=== PATIENT | male | born 1945 | race Caucasian/White ===

== ENCOUNTER → 2018-11-02 | Day surgery (SDC) | payer MEDICARE, OTHER ==
[2018-10-27 14:15] LABS: BASOPHILS % 0.3 % (0.0-1.0); EOSINOPHILS # (AUTO) 0.1 (0.0-0.4); EOSINOPHILS % 2.1 % (0.0-6.0); HEMATOCRIT 36.8 % (38.2-49.6); HEMOGLOBIN 11.8 g/dL (14.0-18.0); LYMPHOCYTES # (AUTO) 0.8 (1.0-3.2); LYMPHOCYTES % 24.2 % (18.0-39.1); MEAN CORPUSCULAR HEMOGLOBIN 27.8 pg (28-32); MEAN CORPUSCULAR HGB CONC 32.1 g/dL (31-35); MEAN CORPUSCULAR VOLUME 86.6 fL (81-99); MONOCYTES # (AUTO) 0.5 (0.2-0.8); MONOCYTES % 13.8 % (4.4-11.3); NEUTROPHILS # (AUTO) 1.9 (2.1-6.9); NEUTROPHILS % 59.3 % (38.7-80.0); PLATELET COUNT 190 x10e3/uL (140-360); RED BLOOD COUNT 4.25 x10e6/uL (4.3-5.7); RED CELL DISTRIBUTION WIDTH 14.4 % (11.7-14.4)
[~2018-11-02] MED LIST: ASPIR 8181 MG PO; ATORVASTATIN CA10 MG PO; CLONIDINE HCL0.2 MG PO; EPHEDRINE SULFATE INJ 50 MG/10 ML SYR ONE; FENTANYL CITRATE/PF 100MCG/2 ML INJ ONE; FUROSEMIDE40 MG PO; HEMATINIC-FOLI1 EACH PO; HYDRALAZINE HCL25 MG PO; KLOR-CON M2020 MEQ PO; LEVETIRACETAM500 MG PO; LEVOTHYROXINE25 MCG PO; MIDAZOLAM HCL 2 MG/2 ML VIAL ONE; NADOLOL40 MG PO; PANTOPRAZOLE SO40 MG PO; PROPOFOL IV EMULSION 10 MG/ML 50 ML VIAL ONE; VITAMIN D3 PO
--- OUTSIDE RECORDS SUMMARY | 2018-11-02 07:41 | XMS REPORT ---
Author Author [facility] Address Unknown Phone Unavailable Care Team Providers Care Seasonal Sales Associate Name Role Phone Unavailable Unavailable Payers Payer Name Policy Type Policy Number Effective Date Expiration Date Problems This patient has no known problems. Allergies, Adverse Reactions, Alerts Allergy Name Allergy Type Status Severity Reaction(s) Onset Date Inactive Date Treating Clinician Comments hydrocodone DA Active U 2018-08-19 00:00:00 hydrocodone DA Active U 2018-08-17 00:00:00 No Known Allergies DA Active U 2016-08-26 00:00:00 Medications This patient has no known medications. Results Test Description Test Time Test Comments Text Results Atomic Results Result Comments GLUBED 2018-08-20 06:22:00 GLUBED (test code=GLUBED) 85 MG/DL 74-106 [id number] 20:33:00* Test Item Value Reference Range Comments GLUBED (test code=GLUBED) 105 MG/DL 74-106 [id number] 16:13:00* Test Item Value Reference Range Comments ACT-ISTAT (test code=ACTI) 147 SEC 74-125 [id number] 16:13:00* Test Item Value Reference Range Comments ACT-ISTAT (test code=ACTI) 263 SEC 74-125 [id number] 15:27:00* Test Item Value Reference Range Comments ACT-ISTAT (test code=ACTI) 246 SEC 74-125 [id number] 15:27:00* Test Item Value Reference Range Comments ACT-ISTAT (test code=ACTI) 147 SEC 74-125 [id number] 13:28:00* Test Item Value Reference Range Comments GLUBED (test code=GLUBED) 79 MG/DL 74-106 - XR CHEST 1 [id number] 13:17:00 FAX: Ayo Dennis [phone] [place]: [facility]: PRE FAX: Salo Sheldon [phone] Name: YINKA FRANZ [facility] : 1945 Age/S: 72/M [address] Unit #: [id number] Loc: [place] [address] Phys: Salo Abarca MD Acct: [id number] Dis Date: Status: PRE IN PHONE #: [phone] Exam Date: 08/17/2018 1307 FAX #: [phone] Reason: PRE OP EXAMS: CPT CODE: [id number] XR CHEST 1 V 22825 EXAM: - XR CHEST 1 V HISTORY: Preoperative exam Location code:C3 COMPARISON: 08/26/2016 FINDINGS: Single AP view of the chest is provided. Heart size and vascularity are within normal limits. Linear areas of scarring at the right lung apex and right and left midlung zones are unchanged. The lungs are clear of focal consolidation. No effusion, pneumothorax, or acute osseous abnormality. IMPRESSION: 1. No radiographic evidence of acute cardiopulmonary process. at 1317 Reported and signed by: Duarte Valles MD CC: Ayo Teixeira MD; Salo benton MD Technologist: Vicente Lopez Trnscrd Date/Time/By: 08/17/2018 (6861) : By: [email or web address] PAGE 1 Signed Report FAX: Ayo Dennis [phone] [place]: St: PRE FAX: Salo Denny [phone] Name: YINKA FRANZ [facility] andrew od : 1945 Age/S: 72/M [address] Unit #: [id number] Loc: [place] [address] Phys: Salo Abarca MD Acct: [id number] Dis Date: Status: PRE IN PHONE #: [phone] Exam Date: 08/17/2018 1307 FAX #: [phone] Reason: PRE OP EXAMS: CPT CODE: [id number] XR CHEST 1 V 76023 < Continued> Orig Print D/T: S: 08/17/2018 (1290) PAGE 2 Signed Report BASIC METABOLIC [id number] 13:12:00* Test Item Value Reference Range Comments SODIUM (test code=NA) 142 mmol/L 137-145 POTASSIUM (test code=K) 4.8 mmol/L 3.4-5.0 CHLORIDE (test code=CL) 105 mmol/L 98-107 CARBON DIOXIDE (test code=CO2) 28 mmol/L 22-30 GLUCOSE (test code=GLU) 91 mg/dL 74-106 BLOOD UREA NITROGEN (test code=BUN) 12 mg/dL 9-20 GLOMERULAR FILTRATION RATE (test code=GFR) >=60 max estimate >60 The estimated glomerular filtration rate is computed usingpatient race, age (>18), sex, and serum creatinine. If anyof the needed data elements are missing the Laboratory cannot compute an estimation of the glomerular filtration rate. CREATININE (test code=CREAT) 0.8 mg/dL 0.7-1.3 CALCIUM (test code=CA) 8.8 mg/dL 8.4-10.2 [id number] 13:12:00* Test Item Value Reference Range Comments MAGNESIUM (test code=MAG) 1.6 mg/dL 1.6-2.3 PROTHROMBIN [id number] 12:55:00* Test Item Value Reference Range Comments PROTHROMBIN TIME PATIENT (test code=PTP) 14.0 SECONDS 9.2-12.1 INTERNATIONAL NORMAL RATIO (test code=INR) 1.3 The INR is to be used only for monitoring ORAL ANTICOAGULANTTHERAPY. Indication INR Value1. Prophylaxis/treatment of: Venous Thrombosis, Pulmonary Embolism 2.0 - 3.02. Prevention of systemic embolism from: Tissue heart valves 2.0 - 3.0 Acute myocardial infarction (to present systemic embolism)* 2.0 - 3.0 Valvular heart disease 2.0 - 3.0 Atrial fibrillation 2.0 - 3.03. Mechanical prosthetic valves (high risk) 2.5 - 3.5 * If oral anticoagulant therapy is elected to preventrecurrent myocardial infarction, an INR of 2.5-3.5 isrecommended, consistent with Food and Drug Administrationrecommendations. IS PATIENT ON ANTICOAGULANTS ? YESLIST ANTICOAGULANT/ANTI PLT MEDICATION: Ot herTHROMBOPLASTIN TIME [id number] 12:55:00* Test Item Value Reference Range Comments THROMBOPLASTIN TIME PARTIAL (test code=PTT) 30.9 SECONDS 23.4-37.0 Therapeutic Range for Heparin EFFECTIVE 12/29/12 Heparin IU/mL aPTT Seconds0.3 64.30.7 88.8 IS PATIENT ON ANTICOAGULANTS ? YESLIST ANTICOAGULANT/ANTI PLT MEDICATION: Ot herCBC W/AUTO [id number] 12:48:00* Test Item Value Reference Range Comments WHITE BLOOD CELL (test code=WBC) 2.5 x10 3/uL 5.0-12.0 RED BLOOD CELL (test code=RBC) 4.28 x10 6/uL 4.70-6.10 HEMOGLOBIN (test code=HGB) 12.2 g/dL 14.0-18.0 HEMATOCRIT (test code=HCT) 37.9 % 37.0-49.0 MEAN CELL VOLUME (test code=MCV) 89 fL 80-94 MEAN CELL HGB (test code=MCH) 28.5 pg 27-31 MEAN CELL HGB CONCENTRATION (test code=MCHC) 32.2 g/dL 33-37 RED CELL DISTRIBUTION WIDTH (test code=RDW) 13.9 % 11.5-15.5 PLATELET COUNT (test code=PLT) 172 x10 3/uL 130-400 MEAN PLATELET VOLUME (test code=MPV) 9.7 fL 9.4-16.4 NEUTROPHIL % (test code=NT%) 59.1 % 43-65 IMMATURE GRANULOCYTE % (test code=IG%) 0.4 % 0.0-2.0 LYMPHOCYTE % (test code=LY%) 17.5 % 20.5-45.5 MONOCYTE % (test code=MO%) 19.0 % 5.5-11.7 EOSINOPHIL % (test code=EO%) 3.6 % 0.9-2.9 BASOPHIL % (test code=BA%) 0.4 % 0.2-1.0 NEUTROPHIL # (test code=NT#) 1.49 x10 3/uL 2.2-4.8 IMMATURE GRANULOCYTE # (test code=IG#) 0.01 x10 3/uL 0-0.03 LYMPHOCYTE # (test code=LY#) 0.44 x10 3/uL 1.3-2.9 MONOCYTE # (test code=MO#) 0.48 x10 3/uL 0.3-0.8 EOSINOPHIL # (test code=EO#) 0.09 x10 3/uL 0.0-0.2 BASOPHIL # (test code=BA#) 0.01 x10 3/uL 0.0-0.1
--- OUTSIDE RECORDS SUMMARY | 2018-11-02 07:41 | XMS REPORT | Clinical Summary ---
Author Author [facility] Address Unknown Phone Unavailable Care Team Providers Care Last Greaser Name Role Phone Daniel Gregorio MD PCP Allergies No Known Allergies Medications End Date Status Medication Sig Dispensed Refills Start Date Active atorvastatin (LIPITOR) 10 Take 10 mg by 0 MG tablet mouth daily. Active nadolol (CORGARD) 40 MG Take 80 mg by 0 tablet mouth 2 (two) times a day. Active ferrous fumarate/folic Take 1 tablet 0 acid (HEMATINIC/FOLIC by mouth ACID ORAL) daily. Active pantoprazole (PROTONIX) Take 40 mg by 0 40 MG EC tablet mouth 2 (two) times a day. Active clonIDINE (CATAPRES) 0.1 Take 0.1 mg 0 MG tablet by mouth 3 (three) times a day. Active potassium chloride Take 20 mEq 0 (K-DUR,KLOR-CON) 10 MEQ by mouth CR tablet daily. Active levETIRAcetam (KEPPRA) Take 500 mg 0 500 MG tablet by mouth 2 (two) times a day. Active levothyroxine (SYNTHROID, Take 25 mcg 0 LEVOXYL) 25 mcg tablet by mouth every morning. Active furosemide (LASIX) 40 mg Take 40 mg by 0 tablet mouth daily. Active hydrALAZINE (APRESOLINE) Take 50 mg by 0 50 MG tablet mouth 2 (two) times a day. Active apixaban (ELIQUIS) 5 mg Take 5 mg by 0 tablet mouth 2 (two) times a day. 10/13/2018 Discontinued warfarin (COUMADIN) 4 MG Take 4 mg by 0 tablet mouth daily. 10/13/2018 Discontinued cephalexin (KEFLEX) 500 Take 500 mg 0 MG capsule by mouth 3 (three) times a day. Active Problems No known active problems Encounters Care Team Description Date Type Specialty Salo Abarca MD Siddiqi, Rashid Muhammad, MD AF (paroxysmal atrial fibrillation) (HCC) 10/13/2018 Hospital Procedural Cardiology Encounter Salo Abarca MD AF (paroxysmal atrial fibrillation) (HCC) (Primary Dx) 10/06/2018 Transcribe Access Orders Ayo Evans MD 05/31/2018 Anesthesia General Surgery Event Estrada Peres MD CYSTO RETROGRADE 05/31/2018 Surgery General Surgery Estrada Peres MD Elevated PSA 05/31/2018 Hospital Radiology Encounter Estrada Peres MD Elevated PSA 05/31/2018 Hospital General Surgery Encounter Estrada Peres MD Elevated PSA (Primary Dx) 05/26/2018 Transcribe Access Orders after 11/01/2017 Family History Medical History Relation Name Comments Diabetes Brother Heart disease Brother Heart disease Brother Heart disease Brother Heart disease Father Cancer Maternal Grandfather Heart failure Mother Cancer Sister Relation Name Status Comments Brother Brother Brother Father Maternal Grandfather Mother Sister Social History Date Tobacco Use Types Packs/Day Years Used Quit: 1994 Former Smoker Cigarettes 1 42 Smokeless Tobacco: Former Chew Quit: 1994 User Alcohol Use Drinks/Week oz/Week Comments Yes 2 Cans of 1.2 beer Sex Assigned at Date Recorded Not on file Industry Job Start Date Occupation Not on file Not on file Not on file Travel End Travel History Travel Start No recent travel history available. Last Filed Vital Signs Time Taken Vital Sign Reading 10/13/2018 1:34 PM CDT Blood Pressure 161/92 10/13/2018 1:34 PM CDT Pulse 69 05/31/2018 8:36 AM COOLING TOWER OPERATOR Temperature 36.4 C (97.5 F) 10/13/2018 1:34 PM CDT Respiratory Rate 18 10/13/2018 1:34 PM CDT Oxygen Saturation 94% - Inhaled Oxygen - Concentration 10/13/2018 10:27 AM CDT Weight 74.4 kg (164 lb) 10/13/2018 10:27 AM CDT Height 175.3 cm (5' 9") 10/13/2018 10:27 AM CDT Body Mass Index 24.22 Plan of Treatment Health Maintenance Due Date Last Done Comments COLON CANCER SCREENING 1996 SHINGLES VACCINES (#1) 1996 65+ PNEUMOCOCCAL VACCINE 11/16/2011 (1 of 2 - PCV13) PNEUMOCOCCAL 11/16/2011 POLYSACCHARIDE VACCINE AGE 65 AND OVER INFLUENZA VACCINE 01/20/2019 Procedures Comments Procedure Name Priority Date/Time Associated Diagnosis ECHOCARDIOGRAM Routine 10/13/2018 AF (paroxysmal atrial TRANSESOPHAGEAL W DOPPLER 12:37 PM CDT fibrillation) (HCC) [facility] SURGICAL PATHOLOGY Routine 05/31/2018 REQUEST 10:37 AM COOLING TOWER OPERATOR US PROSTATE BIOPSY Routine 05/31/2018 Elevated PSA 8:39 AM COOLING TOWER OPERATOR FL PYELOGRAM RETROGRADE Routine 05/31/2018 8:04 AM COOLING TOWER OPERATOR GA AN ELECTIVE Routine 05/31/2018 SUPRAGLOTTIC AIRWAY 7:30 AM COOLING TOWER OPERATOR Procedure Note - Ayo Evans - 05/31/2018 7:30 AM COOLING TOWER OPERATOR ANESTHESIA INTUBATION Date/Time: 05/31/2018 7:30 AM Performed by: Ayo Evans MD Authorized by: Ayo Evans MD Location: OR Urgency: Elective Difficult Airway: No Anesthesio logist: Ayo Evans MD Preoxygena holly with 100% O2: Yes C-spine Precaution s Maintained Throughout : Yes Mask Ventilatio n: Not attempted Final Airway Type: Supraglott ic airway Final LMA: Classic LMA Size: 4 Number of Attempts at Approach: 1 POC GLUCOSE Routine 05/31/2018 6:13 AM COOLING TOWER OPERATOR ESTIMATED GFR STAT 05/31/2018 5:56 AM COOLING TOWER OPERATOR BASIC METABOLIC PANEL STAT 05/31/2018 5:56 AM COOLING TOWER OPERATOR HC COMPLETE BLD COUNT STAT 05/31/2018 W/AUTO DIFF 5:56 AM COOLING TOWER OPERATOR ECG 12-LEAD STAT 05/31/2018 5:45 AM COOLING TOWER OPERATOR after 11/01/2017 Results * Echocardiogram transesophageal (10/13/2018 12:37 PM CDT) BSA Ritchie 1.91 m2 [facility] BSA 1.90 m2 [facility] BMI 24.22 kg/m2 [facility] BSA Haycock 1.91 m2 [facility] Pt Size 175.26 [facility] Pt Wt 74.39 [facility] MAX Pred HR 148.09 [facility] 85 of MPHR 125.88 [facility] Calc MPHR 148.09 bpm [facility] Pred Exer Dur R1 6.88 [facility] Pred METS R1 7.21 [facility] Narrative Performed At [facility] There is mild left ventricular concentric hypertrophy. Left Ventricular ejection fraction is 45 - 50%. Left atrium size is mildly dilated. Right atrium size is mildly enlarged. A closure device is present and in position with a complete seal. 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 Performing Organization Address City/State/Zipcode Phone Number [facility] [address] [place] [address] * Surgical pathology request (05/31/2018 10:37 AM COOLING TOWER OPERATOR) [facility] DEPARTMENT OF PATHOLOGY AND GENOMIC MEDICINE Surgical pathology report See link below for PDF Lab [facility] DEPARTMENT OF Report PATHOLOGY AND GENOMIC MEDICINE Result status This is Final Report for [facility] DEPARTMENT OF [id number] PATHOLOGY AND GENOMIC MEDICINE Performing Organization Address City/State/Zipcode Phone Number [facility] DEPARTMENT OF [address] [place] [id number] PATHOLOGY AND GENOMIC MEDICINE * US Prostate Biopsy (05/31/2018 8:39 AM COOLING TOWER OPERATOR) Narrative Performed At EXAMINATION:US PROSTATE BIOPSY [facility] CLINICAL HISTORY:R97.20 Elevated prostate specific antigen (PSA), Elevated PSA IMPRESSION: Real-time transrectal ultrasound-guided biopsy of the prostate gland was performed by Dr. Peres. Multiple grayscale images submitted for interpretation. Heterogeneous echotexture of hypertrophic prostate gland is identified. The prostate gland measures approximately 3.9 x 2.7 x 4.8cm. The prostate volume is 26.5 cc. The PSA is 3.18. 12 biopsy passes through the prostate gland were seen. Please refer to the intraoperative report for further discussion and findings. [id number] Procedure Note Interface, Radiology Results Incoming - 05/31/2018 8:50 AM COOLING TOWER OPERATOR EXAMINATION: US PROSTATE BIOPSY CLINICAL HISTORY: R97.20 Elevated prostate specific antigen (PSA), Elevated PSA IMPRESSION: Real-time transrectal ultrasound-guided biopsy of the prostate gland was performed by Dr. Peres. Multiple grayscale images submitted for interpretation. Heterogeneous echotexture of hypertrophic prostate gland is identified. The prostate gland measures approximately 3.9 x 2.7 x 4.8cm. The prostate volume is 26.5 cc. The PSA is 3.18. 12 biopsy passes through the prostate gland were seen. Please refer to the intraoperative report for further discussion and findings. [id number] Performing Organization Address [facility] Phone Number [facility] [address] [place] [address] * FL Pyelogram Retrograde (05/31/2018 8:04 AM COOLING TOWER OPERATOR) Narrative Performed At EXAMINATION: [facility] FL PYELOGRAM RETROGRADE CLINICAL HISTORY: Elevated PSA FINDINGS: Fluoroscopy was provided in the Operating Room. Contrast injection into the ureters demonstrate normal-appearing ureters and collecting systems. Filling defects are not seen. IMPRESSION: For complete report, please see the Operative Note. Fluoroscopy time: 9 seconds. Spot films: 3 Dose area product: 1610.9 mGy*cm2 Reference air Kerma: Number mGy [id number] Procedure Note Interface, Radiology Results Incoming - 05/31/2018 8:21 AM COOLING TOWER OPERATOR EXAMINATION: FL PYELOGRAM RETROGRADE CLINICAL HISTORY: Elevated PSA FINDINGS: Fluoroscopy was provided in the Operating Room. Contrast injection into the ureters demonstrate normal-appearing ureters and collecting systems. Filling defects are not seen. IMPRESSION: For complete report, please see the Operative Note. Fluoroscopy time: 9 seconds. Spot films: 3 Dose area product: 1610.9 mGy*cm2 Reference air Kerma: Number mGy [id number] Performing Organization Address [facility] Phone Number [facility] [address] [place] [address] * POC glucose (05/31/2018 6:13 AM COOLING TOWER OPERATOR) POC glucose 77 65 - 100 mg/dL FERNA[facility] GRIFFIN Comment: [facility] Meter ID: [id number] Corporation Pilot: Carie Agee Performing Organization Address City/[facility]/Zipcode Phone Number [facility] DE[facility] OF [address] [place] [address] PATHOLOGY AND GENOMIC MEDICINE FERNANDO GRIFFIN [facility] [address] [place], [place] [id number] [place] [address] * Estimated GFR (05/31/2018 5:56 AM COOLING TOWER OPERATOR) Estimated GFR 75 mL/min/1.73 m2 [facility] Comment: [facility] CatergoryUnitsInte rpretation G1 >=90 Normal or high G2 60-89Mildly decreased P1s57-72 Mildly to moderately decreased H1q73-72 Moderately to severely decreased G4 15-29Severely decreased G5 <15Kidney failure The eGFR was calculated using the Chronic Kidney Disease Epidemiology Collaboration (CKD-EPI) equation. Interpretation is based on recommendations of the National Kidney Foundation-Kidney Disease Outcomes Quality Initiative (NKF-KDOQI) published in 2014. Specimen Plasma specimen Performing Organization Address City/State/Zipcode Phone Number [facility] DEPARTMENT OF [address] [place] [address] PATHOLOGY AND GENOMIC MEDICINE [place] [phone] * CBC with platelet and differential (05/31/2018 5:56 AM COOLING TOWER OPERATOR) WBC 4.7 4.2 - 11.0 k/uL [facility] RBC 4.45 4.04 - 5.86 m/uL [facility] HGB 12.8 (L) 13.0 - 17.3 g/dL [facility] HCT 40.6 34.0 - 45.0 % [facility] MCV 91.2 80.0 - 98.[address] [facility] MCH 28.8 27.0 - 34.[address] [facility] MCHC 31.5 31.5 - 36.5 g/dL [facility] RDW - SD 49.1 37.0 - 51.[address] [facility] MPV 10.2 7.4 - 10.[address] [facility] Platelet count 162 150 - 400 k/uL [facility] Nucleated RBC 0.00 /[address] [facility] Neutrophils 69.7 (H) 36.0 - 66.0 % [facility] Lymphocytes 18.5 (L) 24.0 - 44.0 % [facility] Monocytes 8.7 (H) 0.0 - 6.0 % [facility] Eosinophils 2.1 0.0 - 6.0 % [facility] Basophils 0.6 0.0 - 1.2 % [facility] Immature granulocytes 0.4 0.0 - 1.0 % [facility] Specimen Blood Performing Organization Address City/[facility]/Zipcode Phone Number [facility] DEPARTMENT OF [address] [place] [address] PATHOLOGY AND GENOMIC MEDICINE [place] [phone] * Basic metabolic panel (05/31/2018 5:56 AM COOLING TOWER OPERATOR) Sodium 143 135 - 150 mEq/L [facility] Potassium 3.8 3.5 - 5.0 mEq/L [facility] Chloride 105 98 - 112 mEq/L [facility] CO2 27 24 - 31 mmol/L [facility] Anion gap 11@ANIO 7 - 15 mEq/L [facility] BUN 15 7 - 18 mg/dL [facility] Creatinine 1.00 0.70 - 1.20 mg/dL [facility] Glucose 88 65 - 100 mg/dL [facility] Calcium 8.8 8.8 - 10.2 mg/dL [facility] Specimen Plasma specimen Performing Organization Address City/[facility] Phone Number [facility] DEPARTMENT OF [address] [place] [address] PATHOLOGY AND GENOMIC MEDICINE [place] [address] [place] [id number] [place] [address] * ECG 12 lead (05/31/2018 5:45 AM COOLING TOWER OPERATOR) Ventricular rate 70 [facility] Atrial rate 70 [facility] GA interval 184 [facility] QRSD interval 90 [facility] QT interval 438 [facility] QTC interval 473 [facility] P axis 1 56 [facility] QRS axis 1 -28 [facility] T wave axis 61 [facility] EKG impression Sinus rhythm with occasional [facility] premature ventricular complexes-Anterior infarct , age undetermined-Abnormal ECG-In automated comparison with ECG of -JUL-2016 15:54,-premature ventricular complexes are now present-Left bundle branch block is no longer present-Anterior infarct is now present- Narrative Performed At Performing Organization Address City/State/Zipcode Phone Number [facility] [address] [place] [address] after 11/01/2017 Insurance Payer Benefit Subscriber ID Type Phone Address Plan / Group AETNA MEDICARE AETNA xxxxxxxx HMO MEDICARE HMO/PPO [facility] [place] (Home) [place] [address] Advance Directives Patient has advance care planning documents on file. For more information, gallo trevino contact: Fernando Griffin [address] [place] [address]
[2018-11-02 11:45] VITALS: BP 137/80
== END | disposition home or self-care (01) ==
LOC: OR 07:25
PROVIDERS: ATTEND Internal Medicine Gastroenterology
DX: K29.70 Gastritis, unspecified, without bleeding (principal); D12.3 Benign neoplasm of transverse colon; D12.4 Benign neoplasm of descending colon; D12.5 Benign neoplasm of sigmoid colon; K31.7 Polyp of stomach and duodenum; K29.80 Duodenitis without bleeding; K21.9 Gastro-esophageal reflux disease without esophagitis; R13.10 Dysphagia, unspecified; K57.30 Diverticulosis of large intestine without perforation or abscess without bleeding; K64.8 Other hemorrhoids; K31.89 Other diseases of stomach and duodenum; Z98.84 Bariatric surgery status; I10 Essential (primary) hypertension; I48.91 Unspecified atrial fibrillation; E03.9 Hypothyroidism, unspecified; R56.9 Unspecified convulsions; Z01.810 Encounter for preprocedural cardiovascular examination; Z01.812 Encounter for preprocedural laboratory examination; Z79.02 Long term (current) use of antithrombotics/antiplatelets; I25.10 Atherosclerotic heart disease of native coronary artery without angina pectoris; Z95.5 Presence of coronary angioplasty implant and graft; Z85.46 Personal history of malignant neoplasm of prostate; Z80.0 Family history of malignant neoplasm of digestive organs
CPT/HCPCS: 36415; 43239; 45384; 85025; 88305; 88312; 93005; J2250; J2704; 45378; 45385